=== PATIENT | male | born 1990 | race Two or more races ===

== ENCOUNTER 2022-02-03 20:26 | Emergency (ER) | payer MEDICAID, OTHER ==
[~2022-02-03] VITALS: Ht 172.7 cm; Wt 70.5 kg
[2022-02-03 22:00] VITALS: BP 128/72
[2022-02-03] MEDS ORDERED: SODIUM CHLORIDE 0.9% 1,000 ML IV ONE (22:00)
== END 2022-02-03 22:44 | disposition home or self-care (01) ==
LOC: ER 20:26
DX: K52.9 Noninfective gastroenteritis and colitis, unspecified (principal)
CPT/HCPCS: 96360; 99283; J7030